=== PATIENT | female | born 1950 | race Caucasian/White ===

== ENCOUNTER 2019-06-25 09:02 | Outpatient (CLI) | payer MEDICARE, SELFPAY ==
--- NOTE | ~2019-06-25 | US_ITS ---
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 7 x 3 mm hypoechoic sonographic mass within a left breast subare olar duct TECHNIQUE AND FINDINGS: The risks and potential benefits of the procedure were discussed with the patient, and written inform ed consent was obtained. Timeout procedure was performed. After sterile preparation of the left breas t, 1% lidocaine was utilized for local anesthesia. A 14G spring-loaded biopsy gun needle was advanced to the edge of the region of interest from a later al approach utilizing sonographic guidance. A total of 1 tissue core sample was obtained through the lesion; the biopsy needle was submitted located definitively within the mass, confirmed and document ed by sonographic imaging.. A hematoma developed immediately after the initial biopsy pass, limiting visualization of the mass, which was not easily differentiated from the hematoma. Compression was esther lied for 5 minutes, followed by marker clip placement at the biopsy site. Hemostasis was achieved by additional 10 minutes compression. A sterile bandage was applied. The patient tolerated procedure well and there was no evidence of immediate complication other than t he previously mentioned hematoma. The patient was given verbal instructions prior to departing from the department. A two view mammogram was performed to document tissue marker clip placement. The tiss ue samples were submitted to surgical pathology for histologic analysis. IMPRESSION: 1. Successful ultrasound guided biopsy of left inferior subareolar breast mass with biopsy marker pl acement. Please refer to pathology report for histologic analysis. Reviewed, dictated and finalized at [facility]. Reviewed, dictated and finalized at location A. NEYMAN ELECTRICIAN IMPRESSION: 1. Successful ultrasound guided biopsy of left inferior subareolar breast mass with biopsy marker placement. Please refer to pathology report for histologic analysis.
--- NOTE | ~2019-06-25 | MM_ITS ---
MM post biopsy invasive LT DATE: 06/25/2019 10:55 INDICATION: Post ultrasound-guided biopsy of right breast subareolar solid lesion TECHNIQUE: Digital ML and cc views of left breast following ultrasound-guided biopsy of subareolar ma ss COMPARISON: 06/25/2019 left breast ultrasound biopsy 06/13/2019 diagnostic bilateral digital mammogram FINDINGS: A heart biopsy marker is present in the inferior subareolar area of the left breast. No hafsa dence of any significant hematoma is detected mammographically. IMPRESSION: Status post ultrasound-guided biopsy of lower subareolar left breast mass Reviewed, dictated and finalized at [facility]. Reviewed, dictated and finalized at location A. TEACHING GRADES 9 THRU 12 TEACHER IMPRESSION: Status post ultrasound-guided biopsy of lower subareolar left breas t mass
== END 2019-06-25 09:03 | disposition home or self-care (01) ==
PROVIDERS: PCP Family Medicine; Visit Provider Physician Assistant
DX: D24.2 Benign neoplasm of left breast (principal); N64.52 Nipple discharge
CPT/HCPCS: 19083; 88305; 88342

== ENCOUNTER 2021-12-22 07:31 | Outpatient (CLI) | payer MEDICARE, SELFPAY ==
--- NOTE | ~2021-12-22 | DEXA_ITS ---
Bone Density Report Name: HUGO HUANG Age: 71 Sex: Female Ethnicity: White Date of : 1950 Indication: postmenopausal; screening for osteoporosis; height loss; asthma or emphysema; Referring Provider: MACIEL MCCRARY Study: Bone densitometry was performed. Exam Date: December 22, 2021 Accession number: [id number] Bone Density: Region BMD T-score Z-score Classification AP Spine(L1-L4) 1.114 0.6 2.8 Normal Femoral Neck (Left) 0.709 -1.3 0.6 Osteopenia Total Hip (Left) 1.003 0.5 2.1 Normal Femoral Neck (Right) 0.794 -0.5 1.4 Normal Total Hip (Right) 1.025 0.7 2.3 Normal Total Hip Mean 1.014 0.6 2.2 Normal World Health Organization criteria for BMD impression classify patients as: Normal (T-score at or above -1.0), Osteopenia (T-score between -1.0 and -2.5), or Osteoporosis (T-score at or below -2.5). 10-year Fracture Risk(1): Major Osteoporotic Fracture 9.0% Hip Fracture 1.1% Reported Risk Factors: [place] (), Neck BMD=0.709, BMI=34.4 (1) FRAX(R) Version 3.08. Fracture probability calculated for an untreated patient. Fracture probability may be lower if the patient has received treatment. Previous Exams: Region Exam Age BMD T-score BMD Change BMD Change Date g/cm2 vs Baseline vs Previous AP Spine (L1-L4) 12/22/2021 71 1.114 0.6 0.029 (2.7%)* -0.005 (-0.4%) 09/23/2016 66 1.118 0.6 0.034 (3.1%)* 0.034 (3.1%)* 06/04/2014 64 1.084 0.3 Total Hip(Left) 12/22/2021 71 1.003 0.5 0.025 (2.5%) -0.013 (-1.3%) 09/23/2016 66 1.016 0.6 0.038 (3.9%)* 0.038 (3.9%)* 06/04/2014 64 0.979 0.3 Total Hip(Right) 12/22/2021 71 1.025 0.7 0.033 (3.4%)* -0.006 (-0.6%) 09/23/2016 66 1.032 0.7 0.040 (4.0%)* 0.040 (4.0%)* 06/04/2014 64 0.992 0.4 *Denotes significance at 95% confidence level, LSC for AP Spine = 0.022 g/cm2, LSC for Total Hip = 0.027 g/cm2 Clinical Information Provided by Patient: Has used the following medications: Vitamin D Has the following medical conditions: Asthma or Emphysema Patient maximum height was 63 Menopause Age: 55 No regular weight bearing exercise Onset of menses at age 13 Number of children 0 Impression: The patient has low bone mass, based on the Left Femoral Neck T-score. The patient has an estimated ten-year risk of hip fracture of 1.1% and an estimated ten-year risk of major fracture of 9%, based on the WHO FRAX algorithm
--- NOTE | ~2021-12-22 | MM_ITS ---
EXAMINATION: MM screening chiara BI w tesha HISTORY: Screening TECHNIQUE: Craniocaudal and mediolateral oblique 3-D tomosynthesis images were obtained and synthetic 2-D images were generated. CAD analysis was submitted and interpreted. COMPARISON: Comparison to multiple prior studies sequentially, with oldest reviewed study dated 05/15. BREAST PARENCHYMAL COMPOSITION: Breast composed of scattered areas of fibroglandular density FINDINGS: There is no evidence of suspicious mass, calcification, or architectural distortion to sugg est malignancy in either breast. There has been no suspicious interval change. IMPRESSION: 1. No mammographic evidence of malignancy. 2. Recommend routine screening mammography in one year. BI-RADS Category 1: Negative Reviewed, dictated and finalized at location A.
== END 2021-12-22 07:32 | disposition home or self-care (01) ==
LOC: ANHIMG 07:33
PROVIDERS: PCP Family Medicine; Visit Provider Family Medicine
DX: Z12.31 Encounter for screening mammogram for malignant neoplasm of breast (principal); Z78.0 Asymptomatic menopausal state; M85.89 Other specified disorders of bone density and structure, multiple sites
CPT/HCPCS: 77063; 77067; 77080

== ENCOUNTER 2022-12-15 10:13 | Outpatient (CLI) | payer MEDICARE, SELFPAY ==
[2022-12-15 13:14] LABS: LDL Cholesterol Direct 146 mg/dL
[2022-12-15 13:16] LABS: Alanine Aminotransferase 38 U/L (6-35); Albumin Level 4.7 g/dL (3.5-5.1); Alkaline Phosphatase 72 U/L (38-126); Anion Gap 5 mmol/L (8-16); Aspartate Amino Transferase 50 U/L (14-36); Bilirubin,Total 0.7 mg/dL (0.2-1.3); Blood Urea Nitrogen 22 mg/dL (7-17); Calcium 9.8 mg/dL (8.4-10.2); Carbon Dioxide 32 mmol/L (22-30); Chloride 106 mmol/L (98-107); Cholesterol 240 mg/dL (0-200); Estimated Glomerular Filt Rate > 60; Glucose 101 mg/dL (65-110); HDL Direct 43 mg/dL; Potassium 4.6 mmol/L (3.4-5.0); Sodium 143 mmol/L (137-145)
[2022-12-15 13:23] LABS: Triglycerides 171 mg/dL (<150)
== END 2022-12-15 10:14 | disposition home or self-care (01) ==
LOC: ANHGOSHLAB 10:14
PROVIDERS: PCP Family Medicine; Visit Provider Family Medicine
DX: E78.2 Mixed hyperlipidemia (principal); I10 Essential (primary) hypertension
CPT/HCPCS: 36415; 80053; 80061

== ENCOUNTER 2023-02-09 08:26 | Outpatient (CLI) | payer MEDICARE, SELFPAY ==
--- NOTE | ~2023-02-09 | MM_ITS ---
EXAMINATION: MM screening chiara BI w tesha HISTORY: Screening mammogram TECHNIQUE: Craniocaudal and mediolateral oblique 3-D tomosynthesis images were obtained and synthetic 2-D images were generated. CAD analysis was submitted and interpreted. COMPARISON: 12/22/2021 bilateral screening mammogram 06/25/2019 left ultrasound guided biopsy: Intraductal papilloma with sclerosis 06/13/2019 diagnostic bilateral mammogram and limited left breast ultrasound examination 05/02/2018 bilateral screening mammogram BREAST PARENCHYMAL COMPOSITION: There are scattered areas of fibroglandular density. FINDINGS: There is a cluster of grouped indeterminate microcalcifications in the posterior inner righ t breast; diagnostic right mammogram with magnification views is recommended. Multiple scattered bilateral benign calcifications are noted. No suspicious mass, architectural distortion, skin thickening or retraction of either breast is detec jovani. IMPRESSION: 1. Indeterminate cluster of grouped microcalcifications in the posterior inner right breast 2. Diagnostic right mammogram is recommended, with magnification views BI-RADS Category 0: Incomplete: Needs additional imaging evaluation. Reviewed, dictated and finalized at location A.
== END 2023-02-09 08:27 | disposition home or self-care (01) ==
PROVIDERS: PCP Family Medicine; Visit Provider Family Medicine
DX: Z12.31 Encounter for screening mammogram for malignant neoplasm of breast (principal); R92.8 Other abnormal and inconclusive findings on diagnostic imaging of breast
CPT/HCPCS: 77063; 77067

== ENCOUNTER 2023-03-14 12:20 | Outpatient (CLI) | payer MEDICARE, SELFPAY ==
--- NOTE | ~2023-03-14 | MMUS_ITS ---
EXAMINATION: MM diagnostic mammo unilat RT, US breast RT limited HISTORY: Indeterminate cluster of grouped microcalcifications in the posterior inner right breast on 02/09/2023 screening mammogram TECHNIQUE: ML view of right breast. Magnification ML and CC views of right breast.. CAD analysis was submitted and interpreted. High resolution upper inner quadrant right breast ultrasound examination w as performed. COMPARISON: 02/09/2023 bilateral screening mammogram 12/22/2021 bilateral screening mammogram FINDINGS: MAMMOGRAPHIC FINDINGS: There is a new cluster of grouped granular microcalcifications in the posterior upper inner quadrant of the right breast since 12/22/2021. These are indeterminate. Stereotactic biopsy is recommended give n the lack of associated sonographic correlate ULTRASOUND: No sonographic correlate for the microcalcification cluster in the posterior upper inner quadrant of the right breast is detected. No suspicious mass or shadowing of the upper inner quadrant of the right breast is detected. IMPRESSION: 1. New cluster of grouped indeterminate granular microcalcifications in the posterior upper inner mahesh drant 2. Stereotactic biopsy is recommended BI-RADS category 4, suspicious findings. Reviewed, dictated and finalized at location A. IMPRESSION: 1. New cluster of grouped indeterminate granular microcalcifications in the pos terior upper inner quadrant 2. Stereotactic biopsy is recommended BI-RADS category 4, suspicious findings.
== END 2023-03-14 12:21 | disposition home or self-care (01) ==
PROVIDERS: PCP Family Medicine; Visit Provider Family Medicine
DX: R92.0 Mammographic microcalcification found on diagnostic imaging of breast (principal); R92.8 Other abnormal and inconclusive findings on diagnostic imaging of breast
CPT/HCPCS: 76642; 77065

== ENCOUNTER 2023-07-13 12:52 | Outpatient (RCR) | payer MEDICARE, SELFPAY ==
--- NOTE | 2023-07-13 15:23 | PTOPEVAL1 ---
Assessment and note entered by Stephen Thompson, PT, DPT Evaluation Information Assessment Status Evaluation Diagnosis R knee pain Onset 3-4 weeks Subjective Information Pt reports lateral calf, posterior and lateral knee pain most of the time. She states this started about a month ago after squat walking around her house. Pt states it has gotten progressively better since then. She states standing and doing housework for an extended period of time will make it worse. Reported Pain Level Pain Score 1: Self Report Assessment PT Clinical Summary Gail presents to therapy today for her initial evaluation following a hyperflexion injury. Today she demonstrates active knee ROM and strength that is WNL and mostly pain free, she does report pain with resisted knee flexion. She demonstrates a normal gait pattern and no deviations with stairs. She does have some minor point tenderness along her R lateral knee joint line. She states her pain does not limit her function. She was issued an HEP this date and plans to follow up in a month or so if her knee ache has not improved by then. LEFS: 71/80 Plan of Care Interventions Gait Training,Manual Therapy,Neuro Re-education, Therapeutic Activities,Therapeutic Exercise PT Services Indicated Yes Treatment Frequency and follow up in 1 month if needed Duration These treatments will address the objective and functional deficits as defined above. The patient will be advanced safely and appropriately in order for the patient to progress towards his/her prior level of function. Additional exercises will be introduced and as well as a comprehensive home exercise program upon discharge, if needed, ?to ensure carryover of functional gains achieved in the clinic. This treatment plan has been reviewed and agreement upon by the patient.
--- NOTE | 2023-08-16 08:36 | PTOPDC ---
Assessment and note entered by Stephen Thompson, PT, DPT Evaluation Information Assessment Status Discharge - Pt Not Present Diagnosis R knee pain Onset 3-4 weeks Subjective Information Called pt to follow up, she states she is doing a lot better. She reports doing her exercises frequently, which helps. Assessment PT Clinical Summary Pt was evaluated on 07/13/23 and has been completing her HEP for a month. She will be discharged at this time d/t improving pain reports .
== END 2023-08-16 08:43 | disposition home or self-care (01) ==
LOC: ANHGOSHPT 12:52
PROVIDERS: PCP Family Medicine; Visit Provider Family Medicine
DX: M25.561 Pain in right knee (principal)
CPT/HCPCS: 97110; 97161

== ENCOUNTER 2023-07-18 12:23 | Outpatient (CLI) | payer MEDICARE, SELFPAY ==
--- NOTE | ~2023-07-18 | MM_ITS ---
EXAMINATION: MM stereotactic bx RT, MM post biopsy diagnostic RT, MM stereotactic specimen RT DATE: 07/18/2023 14:05 (accession [id number]), 07/18/2023 14:07 (accession [id number]), 07/18 14:06 (accession [id number]) INDICATION: Indeterminate calcifications of the upper inner quadrant of the right breast. Stereotacti c core biopsy is requested evaluate for malignancy. TECHNIQUE AND FINDINGS: The risks and potential benefits of the procedure were discussed with the patient including bleeding and infection. Patient reports daily marijuana use but denies use of any substance today which would impair her ability to consent. A time out was performed to verify the patient's name, date of a nd site of procedure to be performed. The patient was placed in the prone position with the right eder ast in mediolateral compression, and the area of interest was localized and targeted utilizing digita l imaging with stereotaxis. After sterile preparation of the skin, 4 cc of 1% lidocaine were utilized for local anesthesia at the skin puncture site and 18 of 1% lidocaine with epinephrine were utilized for deeper local anesthesia about the biopsy site. A 9G [place] vacuum assisted biopsy needle was advanced to the level of the morenita cification of interest from a medial approach utilizing stereotactic guidance and a total of six tiss ue core biopsies were obtained. A specimen radiograph demonstrates that the calcifications of interest are included within the tissue cores. A tissue marker clip was then placed at the biopsy site. The needle was removed and hemostas is was achieved. A sterile bandage was applied. The patient tolerated procedure well and there was no evidence of immediate complication. The patient was given verbal instructions to return to the [facility] Department in the event of severe breast pain or rapid breast enlargement. Tissue cores were sub mitted to surgical pathology for histologic analysis. A 2-view right unilateral digital mammogram was obtained post procedure and this demonstrates that th e tissue marker clip is in expected position. IMPRESSION: 1. Successful stereotactic biopsy of calcifications in the upper inner quadrant of the right breast, followed by tissue marker clip placement. Reviewed, dictated and finalized at location A. BOAT CAPTAIN IMPRESSION: 1. Successful stereotactic biopsy of calcifications in the upper inner quadrant of the right breast, followed by tissue marker clip placement. IMPRESSION: 1. Successful stereotactic biopsy of calcifications in the upper inner quadrant of the right breast, followed by tissue marker clip placement.
== END 2023-07-18 12:24 | disposition home or self-care (01) ==
PROVIDERS: PCP Family Medicine; Visit Provider Family Medicine
DX: R92.0 Mammographic microcalcification found on diagnostic imaging of breast (principal); R92.8 Other abnormal and inconclusive findings on diagnostic imaging of breast
CPT/HCPCS: 19081; 77065; 88305; A4648

== ENCOUNTER 2023-12-28 14:22 | Outpatient (CLI) | payer MEDICARE, SELFPAY ==
[2023-12-28 19:49] LABS: Alanine Aminotransferase 55 U/L (6-35); Alkaline Phosphatase 85 U/L (38-126); Anion Gap 8 mmol/L (4-12); Aspartate Amino Transferase 58 U/L (14-36); Bilirubin,Total 0.7 mg/dL (0.2-1.3); Blood Urea Nitrogen 17 mg/dL (7-17); Calcium 9.8 mg/dL (8.4-10.2); Carbon Dioxide 29 mmol/L (22-30); Chloride 104 mmol/L (98-107); Cholesterol 260 mg/dL (0-200); Estimated Glomerular Filt Rate > 60; Glucose 105 mg/dL (65-110); HDL Direct 46 mg/dL; Potassium 4.4 mmol/L (3.4-5.0); Sodium 141 mmol/L (137-145); Triglycerides 200 mg/dL (<150)
[2023-12-28 20:02] LABS: LDL Cholesterol Direct 163 mg/dL
[2023-12-28 22:36] LABS: Hemoglobin A1C 5.8 % (<5.7)
== END 2023-12-28 14:23 | disposition home or self-care (01) ==
PROVIDERS: PCP Family Medicine; Visit Provider Family Medicine
DX: R73.03 Prediabetes (principal); Z13.220 Encounter for screening for lipoid disorders; I10 Essential (primary) hypertension; Z13.228 Encounter for screening for other metabolic disorders
CPT/HCPCS: 36415; 80053; 80061; 83036

== ENCOUNTER 2023-12-28 15:06 | Outpatient (CLI) | payer MEDICARE, SELFPAY ==
--- NOTE | ~2023-12-28 | XR_ITS ---
XR knee RT min 4V DATE: 12/28/2023 15:37 INDICATION: Right knee pain TECHNIQUE: Standing AP, PA, lateral views, sunrise view COMPARISON: None FINDINGS: There is moderate loss of height of the medial compartment with minimal periarticular spurr ing. There is minimal periarticular spurring of the patellofemoral compartment. Subtle chondrocalcinosis of the medial and lateral compartments. No fracture, dislocation or significant joint effusion is evident. No periosteal reaction or bone greer truction. No radiopaque intra-articular loose body is noted. Mild superior pole patellar enthesopathy at the quadriceps tendon insertion. IMPRESSION: Moderate osteoarthritis, greatest involvement at the medial compartment Mild chondrocalcinosis Reviewed, dictated and finalized at location B. IMPRESSION: Moderate osteoarthritis, greatest involvement at the medial compart ment Mild chondrocalcinosis
== END 2023-12-28 15:07 ==
PROVIDERS: PCP Family Medicine; Visit Provider Family Medicine
DX: M17.11 Unilateral primary osteoarthritis, right knee (principal); M11.261 Other chondrocalcinosis, right knee
CPT/HCPCS: 73564